=== PATIENT | male | born 1960 | race Caucasian/White ===

== ENCOUNTER 2017-01-23 08:21 | Inpatient (IN) | payer OTHER ==
[2017-01-23 09:59] VITALS: BMI 24.3
--- NOTE | 2017-01-23 12:03 | HP ---
COWS - Scale Resting Pulse: 0= [place] 80 or Below Sweatin=Flushed/Facial Moisture Restless Observation: 1= Difficult to Sit Still Pupil Size: 2= Moderately Dilated Bone or Joint Aches: 2= Severe Diffuse Aches Runny Nose/ Eye Tearin= Runny Nose/Eyes GI Upset > 30mins: 2= Nausea/Diarrhea Tremor Observation: 2= Slight Tremor Visible Yawning Observation: 1= 1-2x During Session Anxiety or Irritability: 2=Irritable/Anxious Goose Flesh Skin: 0=Smooth Skin COWS Score: 16 Admission [facility] Chief Complaint: Withdrawal sx. Allergies/Adverse Reactions: Allergies Allergy/AdvReac Type Severity Reaction Status Date / Time niacin Allergy Verified 01/23/17 10:25 Penicillins Allergy Verified 01/23/17 10:25 History of Present Illness: 56 y/o man with a 4yr hx. of drug dependence is admitted for detox. Pt. has been in previous detox,reports 1-5yrs. drug free. Pt. is on oxycontin 80mg BID, however pain clinic will no longer continue opioid based pain management. Exam Limitations: No Limitations - Ebola screening Have you traveled outside of the country in the last 21 days: No Have you had contact with anyone from an Ebola affected area: No Have you been sick,other than usual withdrawal symptoms: No - Review of Systems Constitutional: Diaphoresis EENT: reports: Nose Congestion Respiratory: reports: No Symptoms reported Cardiac: reports: No Symptoms Reported GI: reports: Nausea, Abdominal cramping : reports: No Symptoms Reported Musculoskeletal: reports: Back Pain, Joint Pain, Muscle Pain Integumentary: reports: Flushing, Sweating Neuro: reports: Tremors Endocrine: reports: No Symptoms Reported Hematology: reports: No Symptoms Reported Psychiatric: reports: No Sypmtoms Reported Other Systems: Reviewed and Negative Patient History - Patient Medical History Hx Anemia: No Hx Asthma: No Hx Chronic Obstructive Pulmonary Disease (COPD): No Hx Cancer: No Hx Cardiac Disorders: No Hx Congestive Heart Failure: No Hx Hypertension: No Hx Hypercholesterolemia: No Hx Pacemaker: No HX Cerebrovascular Accident: No Hx Seizures: No Hx Dementia: No Hx Diabetes: No Hx Gastrointestinal Disorders: No Hx Liver Disease: No Hx Genitourinary Disorders: No Hx Sexually Transmitted Disorders: No Hx Renal Disease (ESRD): No Hx Thyroid Disease: No Hx Human Immunodeficiency Virus (HIV): No Hx Hepatitis C: No Hx Depression: Yes Hx Suicide Attempt: No Hx Bipolar Disorder: No Hx Schizophrenia: No - Patient Surgical History Past Surgical History: Yes Hx Neurologic Surgery: No Hx Cataract Extraction: No Hx Cardiac Surgery: No Hx Lung Surgery: No Hx Breast Surgery: No Hx Breast Biopsy: No Hx Abdominal Surgery: Yes (Triple hernia repair, stomach funduplication secondary to sliding hiatal he) Hx Appendectomy: No Hx Cholecystectomy: No Hx Genitourinary Surgery: No Hx Section: No Hx Orthopedic Surgery: No Hx Hysterectomy: No Other Surgical History: palate repair at several plastic sxs, stomach sx heller myotomy, abce Anesthesia Reaction: No - PPD History Previous Implant?: Yes Documented Results: Negative w/proof Implanted On Prior [facility] Admission?: Yes Results: 0mm PPD to be Administered?: Yes - Smoking Cessation Smoking history: Current every day smoker Have you smoked in the past 12 months: Yes Aproximately how many cigarettes per day: 40 Hx Chewing Tobacco Use: No Initiated information on smoking cessation: Yes 'Breaking Loose' booklet given: 01/23/17 - Substance & Tx. History Hx Alcohol Use: No Hx Substance Use: Yes Substance Use Type: Opiates Hx Substance Use Treatment: Yes (detox) - Substances Abused Oxycontin Route: Oral Frequency: Daily Amount used: 80mg Age of first use: 52 Date of Last Use: 01/21/17 oxycodone Route: Oral Frequency: Daily Amount used: 40mg Age of first use: 52 Date of Last Use: 01/22/17 Family Disease History - Family Disease History Family Disease History: Diabetes: Grandparent, Heart Disease: Grandparent, CA: Grandparent, Father Admission Physical Exam BHS - Vital Signs Vital Signs: Vital Signs - 24 hr 01/23/17 09:56 Temperature 96.7 F L Pulse Rate 67 Respiratory 19 Rate Blood Pressure 120/60 - Physical General Appearance: Yes: Tremorous, Irritable, Sweating, Anxious HEENTM: Yes: Nasal Congestion, Rhinorrhea Respiratory: Yes: Chest Non-Tender, Lungs Clear, Normal Breath Sounds Neck: Yes: Supple Breast: Yes: Breast Exam Deferred Cardiology: Yes: Regular Rhythm, Regular Rate, S1, S2 Abdominal: Yes: Normal Bowel Sounds, Non Tender, Soft Genitourinary: Yes: Within Normal Limits Back: Yes: Within Normal Limits Musculoskeletal: Yes: Within Normal Limits Extremities: Yes: Tremors Neurological: Yes: Fully Oriented, Alert Integumentary: Yes: Diaphoresis Lymphatic: Yes: Within Normal Limits - Diagnostic (1) Opioid dependence with withdrawal Current Visit: Yes Status: Acute Cleared for Admission [facility] - Detox or Rehab [facility] Level of Care: Medically Managed Detox Regimen/Protocol: Methadone [facility] Breath Alcohol Content Breath Alcohol Content: 0 Urine Drug Screen - Results Drug Screen Negative: No Urine Drug Screen Results: OXY-Oxycodone
[2017-01-23] MEDS ORDERED: guaiFENesin/D-METHORPHAN HB 10 ML UNIT-DOSE CUPS PO PRN (12:13)
[2017-01-23] MEDS ORDERED: ACETAMINOPHEN 325 MG TABLET (FP) PO PRN (12:13)
[2017-01-23] MEDS ORDERED: P-EPHED 60MG/TRIPROLIDI 2.5MG TABLET PO PRN (12:13)
[2017-01-23] MEDS ORDERED: MAGNESIUM CITRATE 300 ML BOTTLE PO PRN (12:13)
[2017-01-23] MEDS ORDERED: MENTHOL/PHENOL 1 EACH UD MM PRN (12:13)
[2017-01-23] MEDS ORDERED: LOPERAMIDE HCL 2 MG CAPSULE PO PRN (12:13)
[2017-01-23] MEDS ORDERED: MAGNESIUM HYDROX 2400MG/30ML ORAL SUSPENSION 30 ML CUP PO PRN (12:13)
[2017-01-23] MEDS ORDERED: METHADONE HCL 10 MG TABLET (FOR DETOX USE ONLY) PO ONE ×2 (12:43→23:00)
--- NOTE | 2017-01-23 13:17 | CONSULT ---
[facility] Psychiatric Consult - Data Date of interview: 01/23/17 Admission source: [facility] Identifying data: This is 56 years old male with no psychiatric hospitalization history intoxicated with: Opioids, Nicotine Substance Abuse History: - Smoking Cessation. Smoking history: Current every day smoker. Have you smoked in the past 12 months: Yes. Aproximately how many cigarettes per day: 40. Hx Chewing Tobacco Use: No. Initiated information on smoking cessation: Yes. 'Breaking Loose' booklet given: 01/23/17. - Substance & Tx. History. Hx Alcohol Use: No. Hx Substance Use: Yes. Substance Use Type : Opiates. Hx Substance Use Treatment: Yes (detox). - Substances Abused. Oxycontin. Route: Oral. Frequency: Daily. Amount used: 80mg. Age of first use: 52. Date of Last Use: 01/21/17. oxycodone. Route: Oral. Frequency: Daily. Amount used: 40mg. Age of first use: 52. Date of Last Use: 01/22/17 Medical History: Denies Psychiatric History: Denies. As per computer there is a history of depression Physical/Sexual Abuse/Trauma History: Denies Additional Comment: Observation. Detox Unit Care Protocol Mental Status Exam - Mental Status Exam Alert and Oriented to: Person Cognitive Function: Fair Patient Appearance: Well Groomed Mood: Euthymic Patient Behavior: Cooperative Speech Pattern: Appropriate Voice Loudness: Normal Thought Process: Goal Oriented Thought Disorder: Being Controlled Hallucinations: Denies Suicidal Ideation: Denies Homicidal Ideation: Denies Insight/Judgement: Fair Sleep: Difficulty falling asleep Appetite: Fair Muscle strength/Tone: Normal Gait/Station: Normal Additional Comments: Observation. Detox Unit Care Protocol Psychiatric Findings - Problem List ([place] 1, 2,3) (1) Opioid dependence with withdrawal Current Visit: Yes Status: Acute (2) Depressive disorder Current Visit: No Status: Acute (3) Nicotine dependence Current Visit: No Status: Acute (4) Opioid dependence Current Visit: No Status: Acute (5) Sedative dependence Current Visit: No Status: Acute (6) Substance induced mood disorder Current Visit: No Status: Suspected - Initial Treatment Plan Initial Treatment Plan: Observation. Detox Unit Care Protocol
[2017-01-23] MEDS: diazePAM 5 MG TABLET PO PRN ×3 (13:19→22:55)
[2017-01-23] MEDS: THIAMINE HCL 100 MG TABLET (FP) PO SCH ×2 (13:50→22:53)
[2017-01-23] MEDS: FOLIC ACID 1 MG TABLET (FP) PO SCH (13:50)
[2017-01-23] MEDS: ASCORBIC ACID 250 MG TABLET (FP) PO SCH ×2 (13:51→22:54)
[2017-01-23] MEDS: PYRIDOXINE HCL (B-6) 50 MG TABLET (FP) PO SCH (13:51)
[2017-01-23] MEDS ORDERED: NICOTINE POLACRILEX 4 MG GUM BUC PRN (14:27)
[2017-01-23] MEDS: NICOTINE 21 MG/24 HOURS TOPICAL PATCH TD SCH (15:05)
--- NOTE | 2017-01-23 16:08 | EKG ---
Test Reason : Blood Pressure : / mmHG Vent. Rate : 074 BPM Atrial Rate : 074 BPM P-R Int : 156 ms QRS Dur : 090 ms QT Int : 398 ms P-R-T Axes : 042 005 036 degrees QTc Int : 441 ms NORMAL SINUS RHYTHM NORMAL ECG NO PREVIOUS ECGS AVAILABLE Confirmed by ELENA NEVES MD ([id number]) on 01/23/2017 4:08:03 PM Referred By: Allen Castro Confirmed By:ELENA NEVES MD
[2017-01-23] MEDS: MAG HYDROX/AL HYDROX/SIMETH 30 ML UNIT-DOSE CUP PO PRN (17:16)
[2017-01-23] MEDS: IBUPROFEN 400 MG TABLET (FP) PO PRN (17:18)
[2017-01-23 20:05] LABS: URINE APPEARANCE CLEAR; URINE BILIRUBIN NEGATIVE (NEGATIVE); URINE BLOOD NEGATIVE (NEGATIVE); URINE COLOR YELLOW; URINE GLUCOSE (UA) NEGATIVE (NEGATIVE); URINE KETONE NEGATIVE (NEGATIVE); URINE LEUK ESTERASE NEGATIVE (NEGATIVE); URINE NITRITE NEGATIVE (NEGATIVE); URINE PROTEIN NEGATIVE (NEGATIVE); URINE UROBILINOGEN NEGATIVE E.U./dl (0.2-1.0)
[2017-01-23] MEDS ORDERED: THIAMINE HCL 100 MG TABLET (FP) PO SCH (22:00)
[2017-01-24] MEDS: diazePAM 5 MG TABLET PO PRN ×5 (05:06→22:28)
[2017-01-24] MEDS: MAG HYDROX/AL HYDROX/SIMETH 30 ML UNIT-DOSE CUP PO PRN ×3 (05:41→23:14)
[2017-01-24] MEDS: IBUPROFEN 400 MG TABLET (FP) PO PRN ×2 (05:41→13:12)
[2017-01-24] MEDS ORDERED: METHADONE HCL 10 MG TABLET (FOR DETOX USE ONLY) PO ONE (10:00)
[2017-01-24 10:22] LABS: ALK PHOS 50 U/L (45-117); ANION GAP 8 (8-16); BILIRUBIN,TOTAL 0.3 mg/dL (0.2-1.0); CALCIUM 9.2 mg/dL (8.5-10.1); CO2 31 mmol/L (21-32); COCKROFT - GAULT 99.95; CREATININE 0.9 mg/dL (0.7-1.3); GLUCOSE,RANDOM 93 mg/dL (74-106); MCH 31.8 pg (25.7-33.7); MEAN CELL VOLUME 93.6 fl (80-96); MEAN PLT VOLUME 8.8 fl (7.5-11.1); PLATELET COUNT 208 K/MM3 (134-434); SGOT/AST 11 U/L (15-37); SGPT/ALT 18 U/L (12-78); TOT PROT 7.1 g/dl (6.4-8.2); WHITE BLOOD COUNT 9.1 K/mm3 (4.0-10.0)
[2017-01-24] MEDS: FOLIC ACID 1 MG TABLET (FP) PO SCH (10:28)
[2017-01-24] MEDS: NICOTINE 21 MG/24 HOURS TOPICAL PATCH TD SCH (10:28)
[2017-01-24] MEDS: THIAMINE HCL 100 MG TABLET (FP) PO SCH ×2 (10:29→22:28)
[2017-01-24] MEDS: PYRIDOXINE HCL (B-6) 50 MG TABLET (FP) PO SCH (10:29)
[2017-01-24] MEDS: ASCORBIC ACID 250 MG TABLET (FP) PO SCH ×2 (10:29→22:28)
--- NOTE | 2017-01-24 11:00 | PN ---
BHS COWS - Scale Resting Pulse: 0= [place] 80 or Below Sweatin=Flushed/Facial Moisture Restless Observation: 1= Difficult to Sit Still Pupil Size: 0= Normal to Room Light Bone or Joint Aches: 2= Severe Diffuse Aches Runny Nose/ Eye Tearin= Runny Nose/Eyes GI Upset > 30mins: 2= Nausea/Diarrhea Tremor Observation of Outstretched Hands: 2= Slight Tremor Visible Yawning Observation: 1= 1-2x During Session Anxiety or Irritability: 2=Irritable/Anxious Goose Flesh Skin: 0=Smooth Skin COWS Score: 14 BHS Progress Note (SOAP) Subjective: Anxiety,muscle aches/spasm,sweating,tremors,bone pain. Objective: 01/24/17 10:59 Vital Signs - 8 hr 01/24/17 01/24/17 01/24/17 03:36 06:43 09:29 Temperature 97.9 F 97.2 F L Pulse Rate 64 59 L Respiratory 18 18 18 Rate Blood Pressure 142/94 129/89 Laboratory Tests 01/23/17 01/24/17 01/24/17 14:00 06:00 06:00 WBC 9.1 RBC 5.17 Hgb 16.4 Hct 48.4 MCV 93.6 MCHC 34.0 RDW 13.0 Plt Count 208 MPV 8.8 Sodium 143 Potassium 4.0 Chloride 104 Carbon Dioxide 31 Anion Gap 8 BUN 7 D Creatinine 0.9 D Creat Clearance w eGFR > 60 Random Glucose 93 Calcium 9.2 Total Bilirubin 0.3 AST 11 L D ALT 18 D Alkaline Phosphatase 50 Total Protein 7.1 Albumin 4.0 Urine Color Yellow Urine Appearance Clear Urine pH 6.0 Ur Specific [place] 1.013 Urine Protein Negative Urine Glucose (UA) Negative Urine Ketones Negative Urine Blood Negative Urine Nitrite Negative Urine Bilirubin Negative Urine Urobilinogen Negative Ur Leukocyte Esterase Negative labs noted Assessment: 01/24/17 10:59 Withdrawal sx. Plan: Continue detox
[2017-01-24] MEDS: diphenhydrAMINE HCL 50 MG CAPSULE PO PRN (22:29)
[2017-01-25] MEDS: diazePAM 5 MG TABLET PO PRN ×5 (02:31→22:34)
[2017-01-25] MEDS ORDERED: RANITIDINE HCL 150 MG TABLET (FP) PO ONE (03:31)
[2017-01-25] MEDS: MAG HYDROX/AL HYDROX/SIMETH 30 ML UNIT-DOSE CUP PO PRN ×2 (05:17→17:38)
[2017-01-25] MEDS ORDERED: METHADONE HCL 5 MG TABLET (FOR DETOX USE ONLY) PO ONE (10:00)
[2017-01-25] MEDS: ASCORBIC ACID 250 MG TABLET (FP) PO SCH ×2 (10:37→22:56)
[2017-01-25] MEDS: PYRIDOXINE HCL (B-6) 50 MG TABLET (FP) PO SCH (10:37)
[2017-01-25] MEDS: NICOTINE 21 MG/24 HOURS TOPICAL PATCH TD SCH (10:37)
[2017-01-25] MEDS: FOLIC ACID 1 MG TABLET (FP) PO SCH (10:37)
[2017-01-25] MEDS: RANITIDINE HCL 150 MG TABLET (FP) PO SCH ×2 (10:37→22:34)
[2017-01-25] MEDS: THIAMINE HCL 100 MG TABLET (FP) PO SCH ×2 (10:37→22:34)
--- NOTE | 2017-01-25 16:13 | PN ---
BHS COWS - Scale Resting Pulse: 0= [place] 80 or Below Sweatin=Flushed/Facial Moisture Restless Observation: 1= Difficult to Sit Still Pupil Size: 0= Normal to Room Light Bone or Joint Aches: 2= Severe Diffuse Aches Runny Nose/ Eye Tearin= Runny Nose/Eyes GI Upset > 30mins: 2= Nausea/Diarrhea Tremor Observation of Outstretched Hands: 2= Slight Tremor Visible Yawning Observation: 1= 1-2x During Session Anxiety or Irritability: 2=Irritable/Anxious Goose Flesh Skin: 3=Piloerection COWS Score: 17 BHS Progress Note (SOAP) Subjective: Nausea, Stomach Ache, Back Ache, Body aches, Tremors, Sweating. Objective: PT. A & O X 3. PT. DENIES CHEST PAIN. 01/25/17 16:12 Vital Signs Temperature 98.0 F 01/25/17 13:49 Pulse Rate 78 01/25/17 13:49 Respiratory Rate 16 01/25/17 13:49 Blood Pressure 106/76 01/25/17 13:49 O2 Sat by Pulse Oximetry (%) Laboratory Last Values WBC 9.1 K/mm3 (4.0-10.0) 01/24/17 06:00 RBC 5.17 M/mm3 (4.00-5.60) 01/24/17 06:00 Hgb 16.4 GM/dL (11.7-16.9) 01/24/17 06:00 Hct 48.4 % (35.4-49) 01/24/17 06:00 MCV 93.6 fl (80-96) 01/24/17 06:00 MCHC 34.0 g/dl (32.0-35.9) 01/24/17 06:00 RDW 13.0 % (11.9-15.9) 01/24/17 06:00 Plt Count 208 K/MM3 (134-434) 01/24/17 06:00 MPV 8.8 fl (7.5-11.1) 01/24/17 06:00 Sodium 143 mmol/L (136-145) 01/24/17 06:00 Potassium 4.0 mmol/L (3.5-5.1) 01/24/17 06:00 Chloride 104 mmol/L (98-107) 01/24/17 06:00 Carbon Dioxide 31 mmol/L (21-32) 01/24/17 06:00 Anion Gap 8 (8-16) 01/24/17 06:00 BUN 7 mg/dL (7-18) D 01/24/17 06:00 Creatinine 0.9 mg/dL (0.7-1.3) D 01/24/17 06:00 Creat Clearance w eGFR > 60 (>60) 01/24/17 06:00 Random Glucose 93 mg/dL (74-106) 01/24/17 06:00 Calcium 9.2 mg/dL (8.5-10.1) 01/24/17 06:00 Total Bilirubin 0.3 mg/dL (0.2-1.0) 01/24/17 06:00 AST 11 U/L (15-37) L D 01/24/17 06:00 ALT 18 U/L (12-78) D 01/24/17 06:00 Alkaline Phosphatase 50 U/L (45-117) 01/24/17 06:00 Total Protein 7.1 g/dl (6.4-8.2) 01/24/17 06:00 Albumin 4.0 g/dl (3.4-5.0) 01/24/17 06:00 Urine Color Yellow 01/23/17 14:00 Urine Appearance Clear 01/23/17 14:00 Urine pH 6.0 (5.0-8.0) 01/23/17 14:00 Ur Specific [place] 1.013 (1.001-1.035) 01/23/17 14:00 Urine Protein Negative (NEGATIVE) 01/23/17 14:00 Urine Glucose (UA) Negative (NEGATIVE) 01/23/17 14:00 Urine Ketones Negative (NEGATIVE) 01/23/17 14:00 Urine Blood Negative (NEGATIVE) 01/23/17 14:00 Urine Nitrite Negative (NEGATIVE) 01/23/17 14:00 Urine Bilirubin Negative (NEGATIVE) 01/23/17 14:00 Urine Urobilinogen Negative E.U./dl (0.2-1.0) 01/23/17 14:00 Ur Leukocyte Esterase Negative (NEGATIVE) 01/23/17 14:00 RPR Titer Nonreactive (NONREACTIVE) 01/24/17 06:00 LABS NOTED. Assessment: 01/25/17 16:12 WITHDRAWAL SYMPTOMS. Plan: CONTINUE DETOX. ADVISED PATIENT TO FOLLOW-UP WITH EMBEDDED SOFTWARE ENGINEER / REHAB MEDICAL PROVIDER AFTER DISCHARGE FROM DETOX FOR GENERAL MEDICAL ASSESSMENT.
[2017-01-25] MEDS: diphenhydrAMINE HCL 50 MG CAPSULE PO PRN (22:34)
[2017-01-26] MEDS: diazePAM 5 MG TABLET PO PRN ×3 (02:37→12:01)
[2017-01-26] MEDS ORDERED: METHADONE HCL 5 MG TABLET (FOR DETOX USE ONLY) PO ONE ×2 (10:00)
[2017-01-26] MEDS: RANITIDINE HCL 150 MG TABLET (FP) PO SCH ×2 (10:24→22:37)
[2017-01-26] MEDS: FOLIC ACID 1 MG TABLET (FP) PO SCH (10:26)
[2017-01-26] MEDS: NICOTINE 21 MG/24 HOURS TOPICAL PATCH TD SCH (10:26)
[2017-01-26] MEDS: PYRIDOXINE HCL (B-6) 50 MG TABLET (FP) PO SCH (10:26)
[2017-01-26] MEDS: THIAMINE HCL 100 MG TABLET (FP) PO SCH ×2 (10:26→22:37)
[2017-01-26] MEDS: ASCORBIC ACID 250 MG TABLET (FP) PO SCH ×2 (10:26→22:38)
[2017-01-26] MEDS ORDERED: hydrOXYzine PAMOATE 50 MG CAPSULE (FP) PO PRN (12:10)
--- NOTE | 2017-01-26 15:20 | PN ---
S Progress Note (SOAP) Subjective: Anxious, restless, interrupted sleep; patient wanted to leave AMA today but agreed to stay until tomorrow morning and agreed to have methadone dose decreased from 15mg to 10mg today so that he can leave tomorrow. As per patient , he has lots of business to take care of including his elderly mother whom he lives with plus his 12 y/o son who lives with his mother and her family. Objective: 01/26/17 15:19 Last Vital Signs Temp Pulse Resp BP Pulse Ox 98 F 77 20 104/74 01/26/17 13:26 01/26/17 13:26 01/26/17 13:26 01/26/17 13:26 Laboratory Tests 01/23/17 01/24/17 01/24/17 14:00 06:00 06:00 WBC 9.1 RBC 5.17 Hgb 16.4 Hct 48.4 MCV 93.6 MCHC 34.0 RDW 13.0 Plt Count 208 MPV 8.8 Sodium 143 Potassium 4.0 Chloride 104 Carbon Dioxide 31 Anion Gap 8 BUN 7 D Creatinine 0.9 D Creat Clearance w eGFR > 60 Random Glucose 93 Calcium 9.2 Total Bilirubin 0.3 AST 11 L D ALT 18 D Alkaline Phosphatase 50 Total Protein 7.1 Albumin 4.0 Urine Color Yellow Urine Appearance Clear Urine pH 6.0 Ur Specific [place] 1.013 Urine Protein Negative Urine Glucose (UA) Negative Urine Ketones Negative Urine Blood Negative Urine Nitrite Negative Urine Bilirubin Negative Urine Urobilinogen Negative Ur Leukocyte Esterase Negative RPR Titer 01/24/17 06:00 WBC RBC Hgb Hct MCV MCHC RDW Plt Count MPV Sodium Potassium Chloride Carbon Dioxide Anion Gap BUN Creatinine Creat Clearance w eGFR Random Glucose Calcium Total Bilirubin AST ALT Alkaline Phosphatase Total Protein Albumin Urine Color Urine Appearance Urine pH Ur Specific [place] Urine Protein Urine Glucose (UA) Urine Ketones Urine Blood Urine Nitrite Urine Bilirubin Urine Urobilinogen Ur Leukocyte Esterase RPR Titer Nonreactive Labs noted Assessment: 01/26/17 15:19 Withdrawal symptoms Plan: Continue detox
[2017-01-26] MEDS: diphenhydrAMINE HCL 50 MG CAPSULE PO PRN (22:38)
[2017-01-26 22:44] VITALS: BP 122/78; PULSE 80; TEMP 97.2
[2017-01-27] MEDS: diphenhydrAMINE HCL 50 MG CAPSULE PO PRN (00:59)
[2017-01-27] MEDS ORDERED: METHADONE HCL 5 MG TABLET (FOR DETOX USE ONLY) PO ONE (06:00)
[2017-01-27] MEDS ORDERED: METHADONE HCL 10 MG TABLET (FOR DETOX USE ONLY) PO ONE (10:00)
--- NOTE | 2017-01-27 12:41 | DS ---
[facility] Detox Discharge Summary Admission Date: 01/23/17 Discharge Date: 01/27/17 - History Present History: Opioid Dependence Pertinent Past History: Mood disorder - Physical Exam Results Vital Signs: Vital Signs Temperature 97.2 F L 01/26/17 22:43 Pulse Rate 80 01/26/17 22:43 Respiratory Rate 18 01/27/17 03:42 Blood Pressure 122/78 01/26/17 22:43 O2 Sat by Pulse Oximetry (%) Pertinent Admission Physical Exam Findings: Withdrawal sx. Laboratory Last Values WBC 9.1 K/mm3 (4.0-10.0) 01/24/17 06:00 RBC 5.17 M/mm3 (4.00-5.60) 01/24/17 06:00 Hgb 16.4 GM/dL (11.7-16.9) 01/24/17 06:00 Hct 48.4 % (35.4-49) 01/24/17 06:00 MCV 93.6 fl (80-96) 01/24/17 06:00 MCHC 34.0 g/dl (32.0-35.9) 01/24/17 06:00 RDW 13.0 % (11.9-15.9) 01/24/17 06:00 Plt Count 208 K/MM3 (134-434) 01/24/17 06:00 MPV 8.8 fl (7.5-11.1) 01/24/17 06:00 Sodium 143 mmol/L (136-145) 01/24/17 06:00 Potassium 4.0 mmol/L (3.5-5.1) 01/24/17 06:00 Chloride 104 mmol/L (98-107) 01/24/17 06:00 Carbon Dioxide 31 mmol/L (21-32) 01/24/17 06:00 Anion Gap 8 (8-16) 01/24/17 06:00 BUN 7 mg/dL (7-18) D 01/24/17 06:00 Creatinine 0.9 mg/dL (0.7-1.3) D 01/24/17 06:00 Creat Clearance w eGFR > 60 (>60) 01/24/17 06:00 Random Glucose 93 mg/dL (74-106) 01/24/17 06:00 Calcium 9.2 mg/dL (8.5-10.1) 01/24/17 06:00 Total Bilirubin 0.3 mg/dL (0.2-1.0) 01/24/17 06:00 AST 11 U/L (15-37) L D 01/24/17 06:00 ALT 18 U/L (12-78) D 01/24/17 06:00 Alkaline Phosphatase 50 U/L (45-117) 01/24/17 06:00 Total Protein 7.1 g/dl (6.4-8.2) 01/24/17 06:00 Albumin 4.0 g/dl (3.4-5.0) 01/24/17 06:00 Urine Color Yellow 01/23/17 14:00 Urine Appearance Clear 01/23/17 14:00 Urine pH 6.0 (5.0-8.0) 01/23/17 14:00 Ur Specific [place] 1.013 (1.001-1.035) 01/23/17 14:00 Urine Protein Negative (NEGATIVE) 01/23/17 14:00 Urine Glucose (UA) Negative (NEGATIVE) 01/23/17 14:00 Urine Ketones Negative (NEGATIVE) 01/23/17 14:00 Urine Blood Negative (NEGATIVE) 01/23/17 14:00 Urine Nitrite Negative (NEGATIVE) 01/23/17 14:00 Urine Bilirubin Negative (NEGATIVE) 01/23/17 14:00 Urine Urobilinogen Negative E.U./dl (0.2-1.0) 01/23/17 14:00 Ur Leukocyte Esterase Negative (NEGATIVE) 01/23/17 14:00 RPR Titer Nonreactive (NONREACTIVE) 01/24/17 06:00 labs noted - Treatment Hospital Course: Detox Protocol Followed, Detoxed Safely, Responded well, Discharged Condition Good, Rehab Referral Accepted Patient has Accepted a Rehab Referral to: [facility] - Diagnosis (1) Opioid dependence with withdrawal Status: Acute (2) Depressive disorder Status: Acute (3) Nicotine dependence Status: Acute Qualifiers: Nicotine product type: cigarettes Substance use status: uncomplicated Qualified Code(s): F17.210 - Nicotine dependence, cigarettes, uncomplicated (4) Substance induced mood disorder Status: Suspected - AMA Did Patient Leave Against Medical Advice: No
[2017-01-28] MEDS ORDERED: METHADONE HCL 5 MG TABLET (FOR DETOX USE ONLY) PO ONE (06:00)
== END 2017-01-27 06:35 | disposition home or self-care (01) | DRG 773 ==
LOC: YASAS 08:21 → Y3N 11:55
PROVIDERS: ADMIT Internal Medicine; ATTEND Internal Medicine
PROC: HZ2ZZZZ Detoxification Services for Substance Abuse Treatment (ICD-10-PCS; principal; 2017-01-27)
DX: F11.23 Opioid dependence with withdrawal (principal); F10.230 Alcohol dependence with withdrawal, uncomplicated; F17.210 Nicotine dependence, cigarettes, uncomplicated; F34.1 Dysthymic disorder; F19.24 Other psychoactive substance dependence with psychoactive substance-induced mood disorder
CPT/HCPCS: 36415; 80053; 81003; 85027; 86593; 93005; 93010

== ENCOUNTER 2017-10-17 08:42 | Inpatient (IN) | payer OTHER ==
[2017-10-17 11:19] VITALS: BMI 26.5
--- NOTE | 2017-10-17 11:46 | HP ---
COWS - Scale Resting Pulse: 1= [place] 81-100 Sweatin=Flushed/Facial Moisture Restless Observation: 1= Difficult to Sit Still Pupil Size: 2= Moderately Dilated Bone or Joint Aches: 2= Severe Diffuse Aches Runny Nose/ Eye Tearin= Runny Nose/Eyes GI Upset > 30mins: 2= Nausea/Diarrhea Tremor Observation: 2= Slight Tremor Visible Yawning Observation: 1= 1-2x During Session Anxiety or Irritability: 2=Irritable/Anxious Goose Flesh Skin: 0=Smooth Skin COWS Score: 17 Admission ROS S - HPI Chief Complaint: Withdrawal sx. Allergies/Adverse Reactions: Allergies Allergy/AdvReac Type Severity Reaction Status Date / Time niacin Allergy Verified 10/17/17 11:25 Penicillins Allergy Verified 10/17/17 11:25 History of Present Illness: 56 y/o man with hx. of opioid dependence is admitted for detox. Pt. has been in previous detox, denies significant period drug free. Exam Limitations: No Limitations - Ebola screening Have you traveled outside of the country in the last 21 days: No (N) Have you had contact with anyone from an Ebola affected area: No Have you been sick,other than usual withdrawal symptoms: No Do you have a fever: No - Review of Systems Constitutional: Diaphoresis EENT: reports: Nose Congestion Respiratory: reports: No Symptoms reported Cardiac: reports: No Symptoms Reported GI: reports: Diarrhea, Nausea, Abdominal cramping : reports: No Symptoms Reported Musculoskeletal: reports: Back Pain, Joint Pain Integumentary: reports: Sweating Neuro: reports: Tremors Endocrine: reports: No Symptoms Reported Hematology: reports: No Symptoms Reported Psychiatric: reports: No Sypmtoms Reported Other Systems: Reviewed and Negative Patient History - Patient Medical History Hx Anemia: No Hx Asthma: No Hx Chronic Obstructive Pulmonary Disease (COPD): No Hx Cancer: No Hx Cardiac Disorders: No Hx Congestive Heart Failure: No Hx Hypertension: No Hx Hypercholesterolemia: No Hx Pacemaker: No HX Cerebrovascular Accident: No Hx Seizures: No Hx Dementia: No Hx Diabetes: No Hx Gastrointestinal Disorders: No Hx Liver Disease: No Hx Genitourinary Disorders: No Hx Sexually Transmitted Disorders: No Hx Renal Disease (ESRD): No Hx Thyroid Disease: No Hx Human Immunodeficiency Virus (HIV): No Hx Hepatitis C: No Hx Depression: Yes Hx Suicide Attempt: No Hx Bipolar Disorder: No Hx Schizophrenia: No - Patient Surgical History Past Surgical History: Yes Hx Neurologic Surgery: No Hx Cataract Extraction: No Hx Cardiac Surgery: No Hx Lung Surgery: No Hx Breast Surgery: No Hx Breast Biopsy: No Hx Abdominal Surgery: Yes (Triple hernia repair, stomach funduplication secondary to sliding hiatal he) Hx Appendectomy: No Hx Cholecystectomy: No Hx Genitourinary Surgery: No Hx Section: No Hx Orthopedic Surgery: No Hx Hysterectomy: No Other Surgical History: palate repair at several plastic sxs, stomach sx heller myotomy, abce Anesthesia Reaction: No - PPD History Previous Implant?: Yes Documented Results: Negative w/proof Implanted On Prior [facility] Admission?: Yes Date: 01/25/17 Results: 0 MM PPD to be Administered?: No - Smoking Cessation Smoking history: Current every day smoker Have you smoked in the past 12 months: Yes Aproximately how many cigarettes per day: 30 Hx Chewing Tobacco Use: No Initiated information on smoking cessation: Yes 'Breaking Loose' booklet given: 10/17/17 - Substance & Tx. History Hx Alcohol Use: No Hx Substance Use: Yes Substance Use Type: Opiates Hx Substance Use Treatment: Yes (Detox 12/2016 at [facility]) - Substances Abused Oxycontin Route: Oral Frequency: Daily Amount used: 240MG Age of first use: 52 Date of Last Use: 10/15/17 Family Disease History - Family Disease History Family Disease History: Diabetes: Grandparent, Heart Disease: Grandparent, [place]: Grandparent, Father Admission Physical Exam S - Vital Signs Vital Signs: Vital Signs - 24 hr 10/17/17 11:17 Temperature 97.9 F Pulse Rate 96 H Respiratory 20 Rate Blood Pressure 133/85 - Physical General Appearance: Yes: Tremorous, Irritable, Sweating, Anxious HEENTM: Yes: Nasal Congestion, Rhinorrhea Respiratory: Yes: Chest Non-Tender, Lungs Clear, Normal Breath Sounds Neck: Yes: Supple Breast: Yes: Breast Exam Deferred Cardiology: Yes: Regular Rhythm, Regular Rate, S1, S2 Abdominal: Yes: Normal Bowel Sounds, Non Tender, Flat Genitourinary: Yes: Within Normal Limits Back: Yes: Within Normal Limits Musculoskeletal: Yes: Within Normal Limits Extremities: Yes: Tremors Neurological: Yes: Fully Oriented, Alert Integumentary: Yes: Diaphoresis Lymphatic: Yes: Within Normal Limits - Diagnostic (1) Nicotine dependence Current Visit: Yes Status: Acute Qualifiers: Nicotine product type: cigarettes Substance use status: uncomplicated Qualified Code(s): F17.210 - Nicotine dependence, cigarettes, uncomplicated (2) Opioid dependence with withdrawal Current Visit: Yes Status: Acute Cleared for Admission [facility] - Detox or Rehab [facility] Level of Care: Medically Managed Detox Regimen/Protocol: Methadone [facility] Breath Alcohol Content Breath Alcohol Content: 0 Urine Drug Screen - Results Drug Screen Negative: No Urine Drug Screen Results: BZO-Benzodiazepines, OXY-Oxycodone
[2017-10-17] MEDS ORDERED: LOPERAMIDE HCL 2 MG CAPSULE PO PRN (11:50)
[2017-10-17] MEDS ORDERED: MAGNESIUM HYDROX 2400MG/30ML ORAL SUSPENSION 30 ML CUP PO PRN (11:50)
[2017-10-17] MEDS ORDERED: hydrOXYzine PAMOATE 50 MG CAPSULE (FP) PO PRN (11:50)
[2017-10-17] MEDS ORDERED: guaiFENesin/D-METHORPHAN HB 10 ML UNIT-DOSE CUPS PO PRN (11:50)
[2017-10-17] MEDS ORDERED: IBUPROFEN 400 MG TABLET (FP) PO PRN (11:50)
[2017-10-17] MEDS ORDERED: MENTHOL/PHENOL 1 EACH UD MM PRN (11:50)
[2017-10-17] MEDS ORDERED: P-EPHED 60MG/TRIPROLIDI 2.5MG TABLET PO PRN (11:50)
[2017-10-17] MEDS ORDERED: NICOTINE POLACRILEX 4 MG GUM BUC PRN (11:50)
[2017-10-17] MEDS ORDERED: MAGNESIUM CITRATE 300 ML BOTTLE PO PRN (11:50)
[2017-10-17] MEDS ORDERED: METHADONE HCL 10 MG TABLET (FOR DETOX USE ONLY) PO ONE ×2 (12:20→23:00)
[2017-10-17] MEDS: PANTOPRAZOLE 40 MG TABLET (FP) PO SCH (13:56)
[2017-10-17] MEDS: diazePAM 5 MG TABLET PO PRN ×3 (13:56→22:32)
[2017-10-17] MEDS: THIAMINE HCL 100 MG TABLET (FP) PO SCH ×2 (14:06→22:32)
[2017-10-17] MEDS: NICOTINE 21 MG/24 HOURS TOPICAL PATCH TD SCH (14:07)
[2017-10-17] MEDS: FOLIC ACID 1 MG TABLET (FP) PO SCH (14:31)
--- NOTE | 2017-10-17 15:14 | EKG ---
Test Reason : Blood Pressure : / mmHG Vent. Rate : 086 BPM Atrial Rate : 086 BPM P-R Int : 156 ms QRS Dur : 090 ms QT Int : 376 ms P-R-T Axes : 045 000 026 degrees QTc Int : 449 ms NORMAL SINUS RHYTHM POSSIBLE LEFT ATRIAL ENLARGEMENT CANNOT RULE OUT INFERIOR INFARCT , AGE UNDETERMINED ABNORMAL ECG Confirmed by MD NAE, ABRAHAM ([id number]) on 10/17/2017 3:14:18 PM Referred By: Confirmed By:ABRAHAM SONI MD
[2017-10-17] MEDS: MAG HYDROX/AL HYDROX/SIMETH 30 ML UNIT-DOSE CUP PO PRN (22:54)
[2017-10-17 22:58] LABS: URINE APPEARANCE CLEAR; URINE BILIRUBIN NEGATIVE (NEGATIVE); URINE BLOOD NEGATIVE (NEGATIVE); URINE COLOR DKYELLOW; URINE GLUCOSE (UA) 1+ (NEGATIVE); URINE KETONE TRACE (NEGATIVE); URINE LEUK ESTERASE NEGATIVE (NEGATIVE); URINE NITRITE NEGATIVE (NEGATIVE); URINE PROTEIN NEGATIVE (NEGATIVE)
[2017-10-18] MEDS: diazePAM 5 MG TABLET PO PRN ×5 (05:03→22:08)
[2017-10-18] MEDS: MAG HYDROX/AL HYDROX/SIMETH 30 ML UNIT-DOSE CUP PO PRN (05:04)
[2017-10-18] MEDS: PANTOPRAZOLE 40 MG TABLET (FP) PO SCH (09:11)
[2017-10-18] MEDS: FOLIC ACID 1 MG TABLET (FP) PO SCH (09:11)
[2017-10-18] MEDS: NICOTINE 21 MG/24 HOURS TOPICAL PATCH TD SCH (09:12)
[2017-10-18] MEDS: THIAMINE HCL 100 MG TABLET (FP) PO SCH ×2 (09:17→22:08)
[2017-10-18 09:53] LABS: HEMATOCRIT 53.7 % (35.4-49); MCHC 33.5 g/dl (32.0-35.9); MEAN CELL VOLUME 92.6 fl (80-96); MEAN PLT VOLUME 8.7 fl (7.5-11.1); PLATELET COUNT 241 K/MM3 (134-434); RDW 13.4 % (11.9-15.9); WHITE BLOOD COUNT 11.2 K/mm3 (4.0-10.0)
[2017-10-18] MEDS ORDERED: METHADONE HCL 10 MG TABLET (FOR DETOX USE ONLY) PO ONE (10:00)
[2017-10-18 10:06] LABS: CHLORIDE 104 mmol/L (98-107); POTASSIUM 3.8 mmol/L (3.5-5.1); SODIUM 140 mmol/L (136-145)
[2017-10-18 10:17] LABS: ALBUMIN 4.6 g/dl (3.4-5.0); ALK PHOS 62 U/L (45-117); ANION GAP 7 (8-16); BILIRUBIN,TOTAL 0.7 mg/dL (0.2-1.0); BLOOD UREA NITROGEN 6 mg/dL (7-18); CALCIUM 9.6 mg/dL (8.5-10.1); CO2 29 mmol/L (21-32); CREATININE 0.9 mg/dL (0.7-1.3); GLUCOSE,RANDOM 112 mg/dL (74-106); SGOT/AST 11 U/L (15-37); SGPT/ALT 22 U/L (12-78); TOT PROT 8.1 g/dl (6.4-8.2)
[2017-10-18] MEDS ORDERED: TRIMETHOBENZAMIDE HCL 200MG/2ML INJ IM PRN (11:24)
--- NOTE | 2017-10-18 11:45 | CONSULT ---
[facility] Psychiatric Consult - Data Date of interview: 10/18/17 Admission source: [facility] Identifying data: Pt. is a 56 year old male, , father of one, and on disability. This is one of multiple admissions for patient. Pt. admitted to for opiate withdrawal. Substance Abuse History: Following information confirmed Mr. Fernandez: - Smoking Cessation. Smoking history: Current every day smoker. Have you smoked in the past 12 months: Yes. Aproximately how many cigarettes per day: 30. Hx Chewing Tobacco Use: No. Initiated information on smoking cessation: Yes. ' Breaking Loose' booklet given: 10/17/17. - Substance & Tx. History. Hx Alcohol Use: No. Hx Substance Use: Yes. Substance Use Type: Opiates. Hx Substance Use Treatment: Yes (Detox 12/2016 at [facility]). - Substances Abused. Oxycontin. Route: Oral. Frequency: Daily. Amount used: 240MG. Age of first use: 52. Date of Last Use: 10/15/17 Medical History: As per records: Triple hernia repair, stomach funduplication secondary to sliding hiatal he. Palate repair at several plastic sxs, stomach sx heller myotomy. Psychiatric History: Pts. psychiatric history is unclear and patient is a poor historian. Reports one psychiatric hospitalization "over ten years ago for drug use." Denies current OPC, but reports having OPC 4-5 years ago and was prescribed "many different medications." States he has been diagnosed with depression in the past but did not think the medications he took were effective. As per Dr. Antunez entry on 01/09/2015 patient used to take Mirtazapine 15mg and seroquel. Pt. refuses to restart mirtazapine at this time. Pt. denies h/o suicide attempt. Pt. denies suicidal and homicidal ideation. Physical/Sexual Abuse/Trauma History: Denies. Mental Status Exam - Mental Status Exam Alert and Oriented to: Time, Person Cognitive Function: Good Patient Appearance: Unkempt Mood: Sad Affect: Mood Congruent Patient Behavior: Cooperative Speech Pattern: Appropriate Voice Loudness: Normal Thought Process: Intact Thought Disorder: Not Present Hallucinations: Denies Suicidal Ideation: Denies Homicidal Ideation: Denies Insight/Judgement: Poor Sleep: Poorly Appetite: Fair Muscle strength/Tone: Normal Gait/Station: Normal Psychiatric Findings - Problem List ([place] 1, 2,3) (1) MDD (major depressive disorder) Current Visit: No Status: Suspected Comment: Self reports. (2) Nicotine dependence Current Visit: Yes Status: Acute Qualifiers: Nicotine product type: cigarettes Substance use status: uncomplicated Qualified Code(s): F17.210 - Nicotine dependence, cigarettes, uncomplicated (3) Opioid dependence with withdrawal Current Visit: Yes Status: Acute (4) Substance induced mood disorder Current Visit: No Status: Suspected (5) Insomnia Current Visit: Yes Status: Acute - Initial Treatment Plan Initial Treatment Plan: Psychoeducation provided. Detoxification in progress. Ambien 10mg qhs prn ordered for insomnia. Pt. reports favorable effect from previously taking ambien. Benefits and side effects (sleep walking) discussed. Verbal consent given.
[2017-10-18] MEDS: LIDOCAINE 5% TOPICAL PATCH TP SCH (13:27)
--- NOTE | 2017-10-18 16:34 | PN ---
BHS COWS - Scale Resting Pulse: 1= [place] 81-100 Sweatin= Chills/Flushing Restless Observation: 1= Difficult to Sit Still Pupil Size: 0= Normal to Room Light Bone or Joint Aches: 2= Severe Diffuse Aches Runny Nose/ Eye Tearin= None GI Upset > 30mins: 2= Nausea/Diarrhea Tremor Observation of Outstretched Hands: 2= Slight Tremor Visible Yawning Observation: 2= >3x During Session Anxiety or Irritability: 2=Irritable/Anxious Goose Flesh Skin: 3=Piloerection COWS Score: 16 BHS Progress Note (SOAP) Subjective: Sweating, Tremors, Nausea, Body aches, Interrupted Sleep. Objective: PT. A & O X 3, OBSERVED AMBULATING ON UNIT. NO ACUTE DISTRESS. 10/18/17 16:33 Vital Signs Temperature 97.7 F 10/18/17 13:16 Pulse Rate 95 H 10/18/17 13:16 Respiratory Rate 18 10/18/17 13:16 Blood Pressure 122/70 10/18/17 13:16 O2 Sat by Pulse Oximetry (%) Laboratory Tests 10/17/17 10/18/17 10/18/17 Unknown 06:10 06:10 WBC 11.2 H RBC 5.80 H Hgb 18.0 H Hct 53.7 H MCV 92.6 MCH 31.0 MCHC 33.5 RDW 13.4 Plt Count 241 MPV 8.7 Sodium 140 Potassium 3.8 Chloride 104 Carbon Dioxide 29 Anion Gap 7 L BUN 6 L Creatinine 0.9 Creat Clearance w eGFR > 60 Random Glucose 112 H D Calcium 9.6 Total Bilirubin 0.7 D AST 11 L ALT 22 D Alkaline Phosphatase 62 D Total Protein 8.1 Albumin 4.6 Urine Color Dkyellow Urine Appearance Clear Urine pH 6.0 Ur Specific [place] 1.016 Urine Protein Negative Urine Glucose (UA) 1+ H Urine Ketones Trace H Urine Blood Negative Urine Nitrite Negative Urine Bilirubin Negative Urine Urobilinogen 2.0 Ur Leukocyte Esterase Negative RPR Titer 10/18/17 06:10 WBC RBC Hgb Hct MCV MCH MCHC RDW Plt Count MPV Sodium Potassium Chloride Carbon Dioxide Anion Gap BUN Creatinine Creat Clearance w eGFR Random Glucose Calcium Total Bilirubin AST ALT Alkaline Phosphatase Total Protein Albumin Urine Color Urine Appearance Urine pH Ur Specific [place] Urine Protein Urine Glucose (UA) Urine Ketones Urine Blood Urine Nitrite Urine Bilirubin Urine Urobilinogen Ur Leukocyte Esterase RPR Titer Nonreactive LABS NOTED. Assessment: 10/18/17 16:34 WITHDRAWAL SYMPTOMS. Plan: CONTINUE DETOX. INCREASE DAILY PO FLUID INTAKE. LIDODERM PATCH FOR LOWER BACK PAIN.
[2017-10-18] MEDS: LIDOCAINE PATCH REMOVAL MC SCH (22:07)
[2017-10-18] MEDS: ZOLPIDEM TARTRATE 5 MG TABLET PO PRN (22:08)
[2017-10-19] MEDS: ACETAMINOPHEN 325 MG TABLET (FP) PO PRN ×2 (02:15→22:52)
[2017-10-19] MEDS: diazePAM 5 MG TABLET PO PRN ×5 (02:15→22:53)
[2017-10-19] MEDS ORDERED: METHADONE HCL 5 MG TABLET (FOR DETOX USE ONLY) PO ONE (10:00)
[2017-10-19] MEDS: PANTOPRAZOLE 40 MG TABLET (FP) PO SCH (10:16)
[2017-10-19] MEDS: NICOTINE 21 MG/24 HOURS TOPICAL PATCH TD SCH (10:16)
[2017-10-19] MEDS: FOLIC ACID 1 MG TABLET (FP) PO SCH (10:16)
[2017-10-19] MEDS: THIAMINE HCL 100 MG TABLET (FP) PO SCH ×2 (10:16→22:20)
[2017-10-19] MEDS: LIDOCAINE 5% TOPICAL PATCH TP SCH (11:30)
--- NOTE | 2017-10-19 15:47 | PN ---
BHS COWS - Scale Resting Pulse: 1= [place] 81-100 Sweatin= Chills/Flushing Restless Observation: 3= Extraneous Movement Pupil Size: 0= Normal to Room Light Bone or Joint Aches: 2= Severe Diffuse Aches Runny Nose/ Eye Tearin= Runny Nose/Eyes GI Upset > 30mins: 2= Nausea/Diarrhea Tremor Observation of Outstretched Hands: 2= Slight Tremor Visible Yawning Observation: 0= None Anxiety or Irritability: 2=Irritable/Anxious Goose Flesh Skin: 0=Smooth Skin COWS Score: 15 BHS Progress Note (SOAP) Subjective: Tremor, nausea, back pain, leg pain, interrupted sleep Objective: 10/19/17 15:44 Last Vital Signs Temp Pulse Resp BP Pulse Ox 96.0 F L 89 18 101/70 10/19/17 13:23 10/19/17 13:23 10/19/17 13:23 10/19/17 13:23 Laboratory Tests 10/17/17 10/18/17 10/18/17 Unknown 06:10 06:10 WBC 11.2 H RBC 5.80 H Hgb 18.0 H Hct 53.7 H MCV 92.6 MCH 31.0 MCHC 33.5 RDW 13.4 Plt Count 241 MPV 8.7 Sodium 140 Potassium 3.8 Chloride 104 Carbon Dioxide 29 Anion Gap 7 L BUN 6 L Creatinine 0.9 Creat Clearance w eGFR > 60 Random Glucose 112 H D Calcium 9.6 Total Bilirubin 0.7 D AST 11 L ALT 22 D Alkaline Phosphatase 62 D Total Protein 8.1 Albumin 4.6 Urine Color Dkyellow Urine Appearance Clear Urine pH 6.0 Ur Specific [place] 1.016 Urine Protein Negative Urine Glucose (UA) 1+ H Urine Ketones Trace H Urine Blood Negative Urine Nitrite Negative Urine Bilirubin Negative Urine Urobilinogen 2.0 Ur Leukocyte Esterase Negative RPR Titer 10/18/17 06:10 WBC RBC Hgb Hct MCV MCH MCHC RDW Plt Count MPV Sodium Potassium Chloride Carbon Dioxide Anion Gap BUN Creatinine Creat Clearance w eGFR Random Glucose Calcium Total Bilirubin AST ALT Alkaline Phosphatase Total Protein Albumin Urine Color Urine Appearance Urine pH Ur Specific [place] Urine Protein Urine Glucose (UA) Urine Ketones Urine Blood Urine Nitrite Urine Bilirubin Urine Urobilinogen Ur Leukocyte Esterase RPR Titer Nonreactive Labs noted: WBC 11.2; serum glucose 112; UA: 1+ glucose Assessment: 10/19/17 15:45 Withdrawal symptoms Noted with leukocytosis, hyperglycemia and glycosuria Plan: Continue detox Leukocytosis: asymptomatic for infection, repeat CBC Hyperglycemia: repeat fasting glucose, send HbA1c Glycosuria: encouraged to drink more water, repeat UA
[2017-10-19] MEDS: ZOLPIDEM TARTRATE 5 MG TABLET PO PRN (22:19)
[2017-10-19] MEDS: LIDOCAINE PATCH REMOVAL MC SCH (22:19)
[2017-10-20] MEDS: diazePAM 5 MG TABLET PO PRN ×2 (02:51→07:04)
[2017-10-20] MEDS ORDERED: METHADONE HCL 5 MG TABLET (FOR DETOX USE ONLY) PO ONE (10:00)
[2017-10-20] MEDS: PANTOPRAZOLE 40 MG TABLET (FP) PO SCH (10:15)
[2017-10-20] MEDS: FOLIC ACID 1 MG TABLET (FP) PO SCH (10:15)
[2017-10-20] MEDS: NICOTINE 21 MG/24 HOURS TOPICAL PATCH TD SCH (10:16)
[2017-10-20] MEDS: LIDOCAINE 5% TOPICAL PATCH TP SCH (10:16)
[2017-10-20] MEDS: THIAMINE HCL 100 MG TABLET (FP) PO SCH (10:17)
--- NOTE | 2017-10-20 11:37 | PN ---
BHS Progress Note (SOAP) Subjective: DECREASED ANXIETY,SWEATS,TREMORS. Objective: 10/20/17 11:37 Vital Signs Temperature 98.5 F 10/20/17 09:41 Pulse Rate 80 10/20/17 09:41 Respiratory Rate 18 10/20/17 09:41 Blood Pressure 117/81 10/20/17 09:41 O2 Sat by Pulse Oximetry (%) Laboratory Last Values WBC 11.2 K/mm3 (4.0-10.0) H 10/18/17 06:10 RBC 5.80 M/mm3 (4.00-5.60) H 10/18/17 06:10 Hgb 18.0 GM/dL (11.7-16.9) H 10/18/17 06:10 Hct 53.7 % (35.4-49) H 10/18/17 06:10 MCV 92.6 fl (80-96) 10/18/17 06:10 MCH 31.0 pg (25.7-33.7) 10/18/17 06:10 MCHC 33.5 g/dl (32.0-35.9) 10/18/17 06:10 RDW 13.4 % (11.9-15.9) 10/18/17 06:10 Plt Count 241 K/MM3 (134-434) 10/18/17 06:10 MPV 8.7 fl (7.5-11.1) 10/18/17 06:10 Sodium 140 mmol/L (136-145) 10/18/17 06:10 Potassium 3.8 mmol/L (3.5-5.1) 10/18/17 06:10 Chloride 104 mmol/L (98-107) 10/18/17 06:10 Carbon Dioxide 29 mmol/L (21-32) 10/18/17 06:10 Anion Gap 7 (8-16) L 10/18/17 06:10 BUN 6 mg/dL (7-18) L 10/18/17 06:10 Creatinine 0.9 mg/dL (0.7-1.3) 10/18/17 06:10 Creat Clearance w eGFR > 60 (>60) 10/18/17 06:10 Random Glucose 112 mg/dL (74-106) H D 10/18/17 06:10 Calcium 9.6 mg/dL (8.5-10.1) 10/18/17 06:10 Total Bilirubin 0.7 mg/dL (0.2-1.0) D 10/18/17 06:10 AST 11 U/L (15-37) L 10/18/17 06:10 ALT 22 U/L (12-78) D 10/18/17 06:10 Alkaline Phosphatase 62 U/L (45-117) D 10/18/17 06:10 Total Protein 8.1 g/dl (6.4-8.2) 10/18/17 06:10 Albumin 4.6 g/dl (3.4-5.0) 10/18/17 06:10 Urine Color Dkyellow 10/17/17 Unknown Urine Appearance Clear 10/17/17 Unknown Urine pH 6.0 (5.0-8.0) 10/17/17 Unknown Ur Specific [place] 1.016 (1.001-1.035) 10/17/17 Unknown Urine Protein Negative (NEGATIVE) 10/17/17 Unknown Urine Glucose (UA) 1+ (NEGATIVE) H 10/17/17 Unknown Urine Ketones Trace (NEGATIVE) H 10/17/17 Unknown Urine Blood Negative (NEGATIVE) 10/17/17 Unknown Urine Nitrite Negative (NEGATIVE) 10/17/17 Unknown Urine Bilirubin Negative (NEGATIVE) 10/17/17 Unknown Urine Urobilinogen 2.0 mg/dL (0.2-1.0) 10/17/17 Unknown Ur Leukocyte Esterase Negative (NEGATIVE) 10/17/17 Unknown RPR Titer Nonreactive (NONREACTIVE) 10/18/17 06:10 Assessment: 10/20/17 11:37 WITHDRAWAL SX Plan: CONTINUE DETOX
[2017-10-20 13:48] VITALS: BP 129/83; PULSE 78; TEMP 97.2
[2017-10-20 17:40] LABS: BASO % 0.7 % (0-2.0); EOS % 2.2 % (0-4.5); HEMATOCRIT 45.5 % (35.4-49); HEMOGLOBIN 15.7 GM/dL (11.7-16.9); LYMPH % 23.9 % (8-40); MCH 31.8 pg (25.7-33.7); MCHC 34.6 g/dl (32.0-35.9); MEAN CELL VOLUME 92.1 fl (80-96); MEAN PLT VOLUME 8.4 fl (7.5-11.1); MONO % 8.6 % (3.8-10.2); NEUT % 64.6 % (42.8-82.8); PLATELET COUNT 197 K/MM3 (134-434); RBC 4.95 M/mm3 (4.00-5.60); RDW 12.9 % (11.9-15.9); WHITE BLOOD COUNT 6.9 K/mm3 (4.0-10.0)
--- NOTE | 2017-10-20 18:06 | DS ---
[facility] Detox Discharge Summary Admission Date: 10/17/17 Discharge Date: 10/20/17 - History Present History: Opioid Dependence Additional Comments: pt declined to complete detox for personal reasons. Alert o x 3. No acute distress. Pt instructed to follow up with PMD for medical management as needed. Pertinent Past History: depression - Physical Exam Results Vital Signs: Vital Signs Temperature 97.2 F L 10/20/17 13:47 Pulse Rate 78 10/20/17 13:47 Respiratory Rate 18 10/20/17 13:47 Blood Pressure 129/83 10/20/17 13:47 O2 Sat by Pulse Oximetry (%) Pertinent Admission Physical Exam Findings: withdrawal sx Laboratory Last Values WBC 6.9 K/mm3 (4.0-10.0) D 10/20/17 09:30 RBC 4.95 M/mm3 (4.00-5.60) 10/20/17 09:30 Hgb 15.7 GM/dL (11.7-16.9) D 10/20/17 09:30 Hct 45.5 % (35.4-49) D 10/20/17 09:30 MCV 92.1 fl (80-96) 10/20/17 09:30 MCH 31.8 pg (25.7-33.7) 10/20/17 09:30 MCHC 34.6 g/dl (32.0-35.9) 10/20/17 09:30 RDW 12.9 % (11.9-15.9) 10/20/17 09:30 Plt Count 197 K/MM3 (134-434) 10/20/17 09:30 MPV 8.4 fl (7.5-11.1) 10/20/17 09:30 Neutrophils % 64.6 % (42.8-82.8) 10/20/17 09:30 Lymphocytes % 23.9 % (8-40) 10/20/17 09:30 Monocytes % 8.6 % (3.8-10.2) 10/20/17 09:30 Eosinophils % 2.2 % (0-4.5) 10/20/17 09:30 Basophils % 0.7 % (0-2.0) 10/20/17 09:30 Sodium 140 mmol/L (136-145) 10/18/17 06:10 Potassium 3.8 mmol/L (3.5-5.1) 10/18/17 06:10 Chloride 104 mmol/L (98-107) 10/18/17 06:10 Carbon Dioxide 29 mmol/L (21-32) 10/18/17 06:10 Anion Gap 7 (8-16) L 10/18/17 06:10 BUN 6 mg/dL (7-18) L 10/18/17 06:10 Creatinine 0.9 mg/dL (0.7-1.3) 10/18/17 06:10 Creat Clearance w eGFR > 60 (>60) 10/18/17 06:10 Random Glucose 112 mg/dL (74-106) H D 10/18/17 06:10 Hemoglobin A1c % 6.0 % (4.8-6.0) 10/20/17 09:30 Calcium 9.6 mg/dL (8.5-10.1) 10/18/17 06:10 Total Bilirubin 0.7 mg/dL (0.2-1.0) D 10/18/17 06:10 AST 11 U/L (15-37) L 10/18/17 06:10 ALT 22 U/L (12-78) D 10/18/17 06:10 Alkaline Phosphatase 62 U/L (45-117) D 10/18/17 06:10 Total Protein 8.1 g/dl (6.4-8.2) 10/18/17 06:10 Albumin 4.6 g/dl (3.4-5.0) 10/18/17 06:10 Urine Color Dkyellow 10/17/17 Unknown Urine Appearance Clear 10/17/17 Unknown Urine pH 6.0 (5.0-8.0) 10/17/17 Unknown Ur Specific [place] 1.016 (1.001-1.035) 10/17/17 Unknown Urine Protein Negative (NEGATIVE) 10/17/17 Unknown Urine Glucose (UA) 1+ (NEGATIVE) H 10/17/17 Unknown Urine Ketones Trace (NEGATIVE) H 10/17/17 Unknown Urine Blood Negative (NEGATIVE) 10/17/17 Unknown Urine Nitrite Negative (NEGATIVE) 10/17/17 Unknown Urine Bilirubin Negative (NEGATIVE) 10/17/17 Unknown Urine Urobilinogen 2.0 mg/dL (0.2-1.0) 10/17/17 Unknown Ur Leukocyte Esterase Negative (NEGATIVE) 10/17/17 Unknown RPR Titer Nonreactive (NONREACTIVE) 10/18/17 06:10 labs noted and repeat cbc wnl - Treatment Hospital Course: Discharged Condition Good - Medication Discharge Medications: Ambulatory Orders Omeprazole 40 mg PO DAILY 10/17/17 - Diagnosis (1) Opioid dependence with withdrawal Status: Acute (2) Nicotine dependence Status: Acute Qualifiers: Nicotine product type: cigarettes Substance use status: in withdrawal Qualified Code(s): F17.213 - Nicotine dependence, cigarettes, with withdrawal (3) GERD (gastroesophageal reflux disease) Status: Chronic Qualifiers: Esophagitis presence: esophagitis presence not specified Qualified Code(s) : K21.9 - Gastro-esophageal reflux disease without esophagitis - AMA Did Patient Leave Against Medical Advice: Yes (AMA)
[2017-10-21] MEDS ORDERED: METHADONE HCL 10 MG TABLET (FOR DETOX USE ONLY) PO ONE (10:00)
[2017-10-22] MEDS ORDERED: METHADONE HCL 5 MG TABLET (FOR DETOX USE ONLY) PO ONE (06:00)
== END 2017-10-20 15:15 | disposition left against medical advice (07) | DRG 770 ==
LOC: YASAS 08:42 → Y3N 11:56
PROVIDERS: ADMIT Internal Medicine; ATTEND Internal Medicine
PROC: HZ2ZZZZ Detoxification Services for Substance Abuse Treatment (ICD-10-PCS; principal; 2017-10-17)
DX: F11.23 Opioid dependence with withdrawal (principal); F17.213 Nicotine dependence, cigarettes, with withdrawal; F33.9 Major depressive disorder, recurrent, unspecified; R81 Glycosuria; D72.829 Elevated white blood cell count, unspecified; G47.00 Insomnia, unspecified; Z88.0 Allergy status to penicillin
CPT/HCPCS: 36415; 80053; 81003; 83036; 85025; 85027; 86593; 93005; 93010

== ENCOUNTER 2019-02-05 08:23 | Inpatient (IN) | payer OTHER ==
[2019-02-05 08:47] VITALS: BMI 30.5
--- NOTE | 2019-02-05 09:51 | HP ---
COWS - Scale Resting Pulse: 0= [place] 80 or Below Sweatin= Beads of Sweat on Face Restless Observation: 1= Difficult to Sit Still Pupil Size: 0= Normal to Room Light Bone or Joint Aches: 2= Severe Diffuse Aches Runny Nose/ Eye Tearin= None GI Upset > 30mins: 0= None Tremor Observation: 2= Slight Tremor Visible Yawning Observation: 0= None Anxiety or Irritability: 2=Irritable/Anxious Goose Flesh Skin: 0=Smooth Skin COWS Score: 10 CIWA Score - Admission Criteria OASAS Guidelines: Admission for Medically Managed Detox: Requires at least one of the followin. CIWA greater than 12 2. Seizures within the past 24 hours 3. Delirium tremens within the past 24 hours 4. Hallucinations within the past 24 hours 5. Acute intervention needed for co occurring medical disorder 6. Acute intervention needed for co occurring psychiatric disorder 7. Severe withdrawal that cannot be handled at a lower level of care (continued vomiting, continued diarrhea, abnormal vital signs) requiring intravenous medication and/or fluids 8. Admission [facility] Allergies/Adverse Reactions: Allergies Allergy/AdvReac Type Severity Reaction Status Date / Time niacin Allergy Verified 02/05/19 08:47 Penicillins Allergy Verified 02/05/19 08:47 History of Present Illness: Search Terms: seymour fernandez, 1960 Search Date: 02/05/2019 09:34:32 AM The Drug Utilization Report below displays all of the controlled substance prescriptions, if any, that your patient has filled in the last twelve months. The information displayed on this report is compiled from pharmacy submissions to the Department, and accurately reflects the information as submitted by the pharmacies. This report was requested by: Kelle Jacobson | Reference #: [id number] Others' Prescriptions Patient Name: Seymour Fernandez Date: 1960 Address: [address] [place] [address] Sex: Male Rx Written Rx Dispensed Drug Quantity Days Supply Prescriber Name 01/21/2019 01/27/2019 oxycontin er 40 mg tablet 60 30 Vik Hutchinson DO 12/24/2018 12/31/2018 oxycontin er 40 mg tablet 60 30 Vik Hutchinson DO 11/26/2018 12/03/2018 oxycontin er 40 mg tablet 60 30 Vik Hutchinson DO 11/03/2018 11/08/2018 oxycontin er 30 mg tablet 90 30 PavVik ceron DO 10/29/2018 11/02/2018 oxycontin er 30 mg tablet 20 7 Vik Hutchinson DO 10/14/2018 10/27/2018 oxycontin er 30 mg tablet 20 7 Vik Hutchinson DO 10/01/2018 10/02/2018 oxycontin er 30 mg tablet 70 23 Vik Hutchinson DO 09/03/2018 09/04/2018 oxycontin er 30 mg tablet 90 30 Vik Hutchinson DO 08/05/2018 08/07/2018 oxycontin 30 mg tablet 90 30 PavVik ceron DO 07/16/2018 07/16/2018 oxycontin 40 mg tablet 90 30 Vik Hutchinson DO 06/10/2018 06/19/2018 oxycontin 40 mg tablet 90 30 Pavjie, Vik Verduzco DO 05/11/2018 05/21/2018 oxycontin er 40 mg tablet 90 30 Pavjie, Vik Verduzco DO 04/28/2018 05/04/2018 oxycontin er 40 mg tablet 51 17 PavVik ceron DO 03/23/2018 04/22/2018 oxycontin er 40 mg tablet 30 10 PavVik ceron DO 03/23/2018 03/25/2018 oxycontin er 40 mg tablet 90 30 Vik Hutchinson DO 03/10/2018 03/16/2018 oxycontin er 40 mg tablet 30 10 PavVik ceron DO 02/26/2018 02/27/2018 oxycontin er 40 mg tablet 60 20 Vik Hutchinson pt here requesting detox from above meds, reports 15 yr chronic neck pain , no surgical intervention , " I have herniated discs " , with epidural injections as procedures , physical therapy and acupuncture , other meds tried as well. Reports current meds x 7-8 years , reports running out early , taking more than prescribed , and is interested in stopping meds , agreeable to have conversation w/ prescriber ,message left w/ answering service w/ pt 's consent . Latest meds taken 8 hours ago 1 tablet , states from current rx has approximately 20 tabs left. Current symptoms as above, states symptoms are impending in 2 -3 hours and feels very scared about how he will feel then " it's very PMHX : achalasia w/ surgery x 1 , partial fundoplication , hernia umbilical / ventral , retro-pharyngeal abscess , cleft lip / palate, cosmetic surgery nose , bone grafting , paroxysmal htn , denies current SI / HI SHx : retired , lives w/ mother , drives , denies legal issues meds : remeron 30 , hydroxyzine 50 hs , omeprazole 40 tobacco : 1 ppd , interested in smoking cessation , requesting NRT w/ patch Exam Limitations: Clinical Condition - Ebola screening Have you traveled outside of the country in the last 21 days: No Have you had contact with anyone from an Ebola affected area: No Do you have a fever: No - Review of Systems Constitutional: See HPI EENT: reports: Other (reading glasses) Respiratory: reports: No Symptoms reported Cardiac: reports: No Symptoms Reported GI: reports: See HPI : reports: No Symptoms Reported Musculoskeletal: reports: See HPI, Back Pain, Muscle Pain Integumentary: reports: See HPI Neuro: reports: No Symptoms reported Endocrine: reports: No Symptoms Reported Psychiatric: reports: Orientated x3, Anxious Patient History - Patient Medical History Hx Anemia: No Hx Asthma: No Hx Chronic Obstructive Pulmonary Disease (COPD): No Hx Cancer: No Hx Cardiac Disorders: No Hx Congestive Heart Failure: No Hx Hypertension: No Hx Hypercholesterolemia: No Hx Pacemaker: No HX Cerebrovascular Accident: No Hx Seizures: No Hx Dementia: No Hx Diabetes: No Hx Gastrointestinal Disorders: No Hx Liver Disease: No Hx Genitourinary Disorders: No Hx Sexually Transmitted Disorders: No Hx Renal Disease (ESRD): No Hx Thyroid Disease: No Hx Human Immunodeficiency Virus (HIV): No Hx Hepatitis C: No Hx Depression: Yes Hx Suicide Attempt: No Hx Bipolar Disorder: No Hx Schizophrenia: No - Patient Surgical History Past Surgical History: Yes Hx Neurologic Surgery: No Hx Cataract Extraction: No Hx Cardiac Surgery: No Hx Lung Surgery: No Hx Breast Surgery: No Hx Breast Biopsy: No Hx Abdominal Surgery: Yes (Triple hernia repair, stomach funduplication secondary to sliding hiatal he) Hx Appendectomy: No Hx Cholecystectomy: No Hx Genitourinary Surgery: No Hx Section: No Hx Orthopedic Surgery: No Hx Hysterectomy: No Other Surgical History: palate repair at several plastic sxs, stomach sx heller myotomy, abce Anesthesia Reaction: No - PPD History Date: 01/25/17 Results: 0 MM - Smoking Cessation Smoking history: Current every day smoker Have you smoked in the past 12 months: Yes Aproximately how many cigarettes per day: 30 Hx Chewing Tobacco Use: No Initiated information on smoking cessation: No - Substances abused Oxycontin Substance route: Oral Frequency: Daily Amount used: 80mg daily Age of first use: 51 Date of last use: 02/04/19 Family Disease History - Family Disease History Family Disease History: Diabetes: Grandparent, Heart Disease: Grandparent, Mother (80 , heart dz, htn ), CA: Grandparent, Father (d. 73 , NSCLC ), Other: Mother, Son (14 , autistic ) Admission Physical Exam BHS - Vital Signs Vital Signs: Vital Signs - 24 hr 02/05/19 08:42 Temperature 98.3 F Pulse Rate 77 Respiratory 18 Rate Blood Pressure 146/84 - Physical General Appearance: Yes: Mild Distress, Anxious HEENTM: Yes: EOMI, Hearing grossly Normal, Normocephalic, Muffled/Hoarse Voice, Other (s/p cleft surgery , septal deviation , slight facial asymmetry poor dentition pupils small for light) Respiratory: Yes: Chest Non-Tender, Lungs Clear, Normal Breath Sounds Neck: Yes: No masses,lesions,Nodules, Trachea in good position Cardiology: Yes: Regular Rhythm, Regular Rate, S1, S2, Tachycardia Abdominal: Yes: Soft, Protuberent, Hernia Back: Yes: Normal Inspection Musculoskeletal: Yes: Gait Steady Extremities: Yes: Normal Range of Motion, Non-Tender Neurological: Yes: Fully Oriented, Alert, Motor Strength 5/5 Integumentary: Yes: Warm - Diagnostic (1) Nicotine dependence Current Visit: Yes Status: Chronic Qualifiers: Nicotine product type: cigarettes (2) Opioid dependence with withdrawal Current Visit: Yes Status: Acute Breathalyzer - Breathalyzer Breathalyzer: 0 Urine Drug Screen - Test Device Lot number: [id number] Expiration date: 10/29/20 - Control Is test valid?: Yes - Results Drug screen NEGATIVE: No Urine drug screen results: OXY-Oxycodone Inpatient Rehab Admission - Rehab Decision to Admit Inpatient rehab admission?: No
[2019-02-05] MEDS ORDERED: IBUPROFEN 400 MG TABLET (FP) PO PRN (10:04)
[2019-02-05] MEDS ORDERED: ACETAMINOPHEN 325 MG TABLET (FP) PO PRN ×2 (10:04)
[2019-02-05] MEDS ORDERED: MAGNESIUM CITRATE 300 ML BOTTLE PO PRN (10:04)
[2019-02-05] MEDS ORDERED: MAGNESIUM HYDROX 2400MG/30ML ORAL SUSPENSION 30 ML CUP PO PRN (10:04)
[2019-02-05] MEDS ORDERED: MENTHOL/PHENOL 1 EACH UD MM PRN (10:04)
[2019-02-05] MEDS ORDERED: MELATONIN 5 MG TABLETS PO PRN (10:04)
[2019-02-05] MEDS ORDERED: DICYCLOMINE HCL 10 MG CAPSULE PO PRN (10:04)
[2019-02-05] MEDS ORDERED: PROCHLORPERAZINE MALEATE 5 MG TABLET PO PRN (10:04)
[2019-02-05] MEDS ORDERED: MAG HYDROX/AL HYDROX/SIMETH 30 ML UNIT-DOSE CUP PO PRN (10:04)
[2019-02-05] MEDS: hydrOXYzine PAMOATE 25 MG CAPSULE (FP) PO PRN ×2 (11:18→16:43)
[2019-02-05] MEDS: NICOTINE 7 MG/24 HOURS TOPICAL PATCH TD SCH (11:21)
[2019-02-05 12:14] LABS: ALBUMIN 3.8 g/dl (3.4-5.0); BILIRUBIN,TOTAL 0.5 mg/dL (0.2-1); CALCIUM 9.4 mg/dL (8.5-10.1); CREATININE 0.8 mg/dL (0.55-1.3); POTASSIUM 5.3 mmol/L (3.5-5.1)
[2019-02-05 12:27] LABS: HEMATOCRIT 45.9 % (35.4-49); HEMOGLOBIN 15.9 GM/dL (11.7-16.9); MCH 31.3 pg (25.7-33.7); MCHC 34.6 g/dl (32.0-35.9); MEAN CELL VOLUME 90.5 fl (80-96); MEAN PLT VOLUME 7.8 fl (7.5-11.1); PLATELET COUNT 246 K/MM3 (134-434); RBC 5.07 M/mm3 (4.00-5.60); RDW 13.4 % (11.9-15.9); WHITE BLOOD COUNT 7.1 K/mm3 (4.0-10.0)
[2019-02-05] MEDS: cloNIDine HCL 0.1 MG TABLET PO PRN ×2 (13:01→19:12)
[2019-02-05] MEDS: METHOCARBAMOL 500 MG TABLET PO PRN ×2 (13:01→19:12)
[2019-02-05] MEDS ORDERED: MIRTAZAPINE 30 MG TABLET (FP) PO SCH (22:00)
[2019-02-05] MEDS ORDERED: THIAMINE HCL 100 MG TABLET (FP) PO SCH (22:00)
[2019-02-05] MEDS ORDERED: METHADONE HCL 10 MG TABLET (FOR DETOX USE ONLY) PO ONE (23:00)
[2019-02-06] MEDS: cloNIDine HCL 0.1 MG TABLET PO PRN (06:35)
[2019-02-06] MEDS ORDERED: METHADONE HCL 5 MG TABLET (FOR DETOX USE ONLY) PO ONE (10:00)
[2019-02-06] MEDS ORDERED: PANTOPRAZOLE 40 MG TABLET (FP) PO SCH (10:00)
[2019-02-06] MEDS: NICOTINE 7 MG/24 HOURS TOPICAL PATCH TD SCH (10:10)
[2019-02-06] MEDS: METHOCARBAMOL 500 MG TABLET PO PRN (10:12)
--- NOTE | 2019-02-06 11:42 | PN ---
S Progress Note Note: Pt's k+ level is 5.3, will repeat cmp stat.
--- NOTE | 2019-02-06 11:46 | PN ---
S COWS - Scale Resting Pulse: 0= [place] 80 or Below Sweatin= Beads of Sweat on Face Restless Observation: 1= Difficult to Sit Still Pupil Size: 0= Normal to Room Light Bone or Joint Aches: 4=Acute Joint/Muscle Pain Runny Nose/ Eye Tearin= None GI Upset > 30mins: 0= None Tremor Observation of Outstretched Hands: 2= Slight Tremor Visible Yawning Observation: 1= 1-2x During Session Anxiety or Irritability: 2=Irritable/Anxious Goose Flesh Skin: 0=Smooth Skin COWS Score: 13 BHS Progress Note (SOAP) Subjective: c/o sweats, irritability, anxiety, and tremor. Objective: 02/06/19 11:43 Vital Signs 02/06/19 02/06/19 08:11 09:55 Temperature 98.1 F 98.1 F Pulse Rate 60 73 Respiratory 18 18 Rate Blood Pressure 125/62 127/77 Laboratory Last Values WBC 7.1 K/mm3 (4.0-10.0) 02/05/19 10:35 RBC 5.07 M/mm3 (4.00-5.60) 02/05/19 10:35 Hgb 15.9 GM/dL (11.7-16.9) 02/05/19 10:35 Hct 45.9 % (35.4-49) 02/05/19 10:35 MCV 90.5 fl (80-96) 02/05/19 10:35 MCH 31.3 pg (25.7-33.7) 02/05/19 10:35 MCHC 34.6 g/dl (32.0-35.9) 02/05/19 10:35 RDW 13.4 % (11.9-15.9) 02/05/19 10:35 Plt Count 246 K/MM3 (134-434) D 02/05/19 10:35 MPV 7.8 fl (7.5-11.1) 02/05/19 10:35 Sodium 136 mmol/L (136-145) 02/05/19 10:35 Potassium 5.3 mmol/L (3.5-5.1) H 02/05/19 10:35 Chloride 102 mmol/L (98-107) 02/05/19 10:35 Carbon Dioxide 30 mmol/L (21-32) 02/05/19 10:35 Anion Gap 4 MMOL/L (8-16) L 02/05/19 10:35 BUN 13 mg/dL (7-18) 02/05/19 10:35 Creatinine 0.8 mg/dL (0.55-1.3) 02/05/19 10:35 Est GFR (CKD-EPI)AfAm 114.13 02/05/19 10:35 Est GFR (CKD-EPI)NonAf 98.47 02/05/19 10:35 Random Glucose 111 mg/dL (74-106) H 02/05/19 10:35 Calcium 9.4 mg/dL (8.5-10.1) 02/05/19 10:35 Total Bilirubin 0.5 mg/dL (0.2-1) 02/05/19 10:35 AST 16 U/L (15-37) 02/05/19 10:35 ALT 32 U/L (13-61) 02/05/19 10:35 Alkaline Phosphatase 76 U/L (45-117) 02/05/19 10:35 Total Protein 7.0 g/dl (6.4-8.2) 02/05/19 10:35 Albumin 3.8 g/dl (3.4-5.0) 02/05/19 10:35 RPR Titer Nonreactive (NONREACTIVE) 02/05/19 10:35 Potassium level is 5.3, repeat of cmp ordered. Assessment: 02/06/19 11:45 AOX3, in no respiratory distress, full ROM, ambulating in the unit. withdrawal symptoms persists. Plan: Continue detox repeat cmp and monitor potassium level
[2019-02-06] MEDS: hydrOXYzine PAMOATE 25 MG CAPSULE (FP) PO PRN (13:36)
[2019-02-06 13:55] VITALS: TEMP 98.2
[2019-02-06 17:51] VITALS: BP 110/68; PULSE 55
--- NOTE | 2019-02-06 18:08 | PN ---
[facility] Progress Note Note: patient does not want to continue treatment for personal issue,all attempts to convince patient to stay with no avail, high risk of relapsing,patient understood,seen by counselor, patient signed release AMA,advise to go to nearest emergency room if any problem left unit in good and stable condition
--- NOTE | 2019-02-06 18:11 | DS ---
[facility] Detox Discharge Summary Admission Date: 02/05/19 Discharge Date: 02/06/19 - History Present History: Opioid Dependence Additional Comments: patient signed release ama Pertinent Past History: nicotine dependence - Physical Exam Results Vital Signs: Vital Signs Temperature 98.2 F 02/06/19 17:50 Pulse Rate 55 L 02/06/19 17:50 Respiratory Rate 16 02/06/19 17:50 Blood Pressure 110/68 02/06/19 17:50 O2 Sat by Pulse Oximetry (%) Pertinent Admission Physical Exam Findings: withdrawal sign and symptom Vital Signs Temperature 98.2 F 02/06/19 17:50 Pulse Rate 55 L 02/06/19 17:50 Respiratory Rate 16 02/06/19 17:50 Blood Pressure 110/68 02/06/19 17:50 O2 Sat by Pulse Oximetry (%) Laboratory Last Values WBC 7.1 K/mm3 (4.0-10.0) 02/05/19 10:35 RBC 5.07 M/mm3 (4.00-5.60) 02/05/19 10:35 Hgb 15.9 GM/dL (11.7-16.9) 02/05/19 10:35 Hct 45.9 % (35.4-49) 02/05/19 10:35 MCV 90.5 fl (80-96) 02/05/19 10:35 MCH 31.3 pg (25.7-33.7) 02/05/19 10:35 MCHC 34.6 g/dl (32.0-35.9) 02/05/19 10:35 RDW 13.4 % (11.9-15.9) 02/05/19 10:35 Plt Count 246 K/MM3 (134-434) D 02/05/19 10:35 MPV 7.8 fl (7.5-11.1) 02/05/19 10:35 Sodium 136 mmol/L (136-145) 02/05/19 10:35 Potassium 5.3 mmol/L (3.5-5.1) H 02/05/19 10:35 Chloride 102 mmol/L (98-107) 02/05/19 10:35 Carbon Dioxide 30 mmol/L (21-32) 02/05/19 10:35 Anion Gap 4 MMOL/L (8-16) L 02/05/19 10:35 BUN 13 mg/dL (7-18) 02/05/19 10:35 Creatinine 0.8 mg/dL (0.55-1.3) 02/05/19 10:35 Est GFR (CKD-EPI)AfAm 114.13 02/05/19 10:35 Est GFR (CKD-EPI)NonAf 98.47 02/05/19 10:35 Random Glucose 111 mg/dL (74-106) H 02/05/19 10:35 Calcium 9.4 mg/dL (8.5-10.1) 02/05/19 10:35 Total Bilirubin 0.5 mg/dL (0.2-1) 02/05/19 10:35 AST 16 U/L (15-37) 02/05/19 10:35 ALT 32 U/L (13-61) 02/05/19 10:35 Alkaline Phosphatase 76 U/L (45-117) 02/05/19 10:35 Total Protein 7.0 g/dl (6.4-8.2) 02/05/19 10:35 Albumin 3.8 g/dl (3.4-5.0) 02/05/19 10:35 RPR Titer Nonreactive (NONREACTIVE) 02/05/19 10:35 - Medication Discharge Medications: Ambulatory Orders Omeprazole 40 mg PO DAILY 10/17/17 Mirtazapine [Remeron -] 30 mg PO HS 02/05/19 hydrOXYzine PAMOATE [Vistaril -] 50 mg PO BID 02/05/19 - AMA Did Patient Leave Against Medical Advice: Yes
[2019-02-07] MEDS ORDERED: METHADONE HCL 10 MG TABLET (FOR DETOX USE ONLY) PO ONE (10:00)
[2019-02-08] MEDS ORDERED: METHADONE HCL 5 MG TABLET (FOR DETOX USE ONLY) PO ONE (06:00)
== END 2019-02-06 07:09 | disposition left against medical advice (07) | DRG 894 ==
LOC: YASAS 08:23 → Y6N 10:47
PROVIDERS: ADMIT Surgery; ATTEND Surgery
PROC: HZ2ZZZZ Detoxification Services for Substance Abuse Treatment (ICD-10-PCS; principal; 2019-02-05)
DX: F11.23 Opioid dependence with withdrawal (principal); F17.210 Nicotine dependence, cigarettes, uncomplicated; R00.0 Tachycardia, unspecified; Z88.0 Allergy status to penicillin; Z88.8 Allergy status to other drugs, medicaments and biological substances
CPT/HCPCS: 36415; 80053; 85027; 86593; J0735